=== PATIENT | female | born 1960 | race Caucasian/White ===

== ENCOUNTER 2017-04-03 23:58 | Emergency (ER) | payer OTHER ==
[~2017-04-03] VITALS: Ht 172.7 cm; Wt 127.0 kg
[~2017-04-03 23:58] MED LIST: ECOT81TA2 PO; ISOS30 PO; LEVO.1 PO; METO25 PO; UMEC1AER INH
[2017-04-04 00:07] VITALS: BP 184/79; PULSE 74; RESP 16; TEMP 99
[2017-04-04] MEDS ORDERED: UMEC1AER INH (01:25)
[2017-04-04] MEDS ORDERED: ISOS30TA3 PO (01:25)
[2017-04-04] MEDS ORDERED: METO25TA3 PO (01:25)
[2017-04-04] MEDS ORDERED: LEVO.1 PO (01:25)
[2017-04-04] MEDS ORDERED: ASPI81TA11 PO (01:25)
--- NOTE | 2017-04-04 01:29 | PD ---
HPI Chief Complaint: Laceration/Skin Injury Time Seen by Provider: 01:21 Travel History International Travel<30 days: No Contact w/Intl Traveler<30days: No Traveled to known affect area: No History of Present Illness HPI 56-year-old female presents to the emergency department by private transportation for evaluation of right foot injury. Just prior to arrival to the emergency department around 11 PM she was walking barefoot in her home and cut her foot on a tile cutter. Patient denies other injury. Patient became concerned because she could not recall her last tetanus immunization. Patient is not diabetic. Patient takes no blood thinning agents. Patient denies other injury. Bleeding has been controlled since arriving to the emergency department. PFSH Past Medical History Narrative Medical CAD COPD hypothyroidism; cyst jaw surgery removal; no tobacco use no alcohol use ; nursing notes reviewed Cardiovascular Problems: Yes (PR 2015; CARDIAC CATH) COPD: Yes Diminished Hearing: No Headaches: Yes Reproductive: Yes (HEAVY MENSTRUATION) Respiratory: Yes (60) Thyroid Disease: Yes (HYPO) Menopausal: Yes : 1 Para: 1 Dilation and Curettage (D&C): Yes (IN THE PAST FOR HEAVY MENSTRUATION) Past Surgical History Genitourinary Surgery: Yes (CYST ON R FALLOPIAN TUBE) Oral Surgery: Yes (REALIGNMENT OF LOWER JAW) Other Surgery: Yes (REMOVAL OF CYST ON L INDEX FINGER) Social History Alcohol Use: No Tobacco Use: No Substance Use: No Allergies-Medications (Allergen,Severity, Reaction): Coded Allergies: No Known Allergies (Verified , 04/04/17) Reported Meds & Prescriptions Reported Meds & Active Scripts Active Reported Anoro Ellipta Inh (Umeclidinium/Vilanterol) 62.5-25 Mcg/Act Aero 1 Puff INH DAILY Synthroid (Levothyroxine Sodium) 100 Mcg Tab 100 Mcg PO DAILY Metoprolol Tartrate 25 Mg Tab 25 Mg PO BID Isosorbide Mononitrate ER (Isosorbide Mononitrate) 30 Mg Nishant 30 Mg PO DAILY Aspirin EC (Aspirin) 81 Mg Tabdr 81 Mg PO DAILY Review of Systems Except as stated in HPI: all other systems reviewed are Neg General / Constitutional: No: Fever, Chills HENT: No: Congestion Cardiovascular: No: Chest Pain or Discomfort Respiratory: No: Shortness of Breath Gastrointestinal: No: Abdominal Pain Genitourinary: No: Flank Pain Musculoskeletal: Positive: Pain Skin: Positive Other (sole of right foot), No Rash ( laceration) Neurologic: No: Weakness Hematologic/Lymphatic: No: Lymph Node Enlargement Physical Exam Narrative Gen.: Well-developed well-nourished female in no acute distress no respiratory distress Extremity attention right foot plantar surface 3/4 cm x 3/4 cm flap laceration plantar surface of the right foot lateral aspect no visualized foreign body no active bleeding foot is neurovascular tendon intact distally with dorsalis pedis pulse 2+ to palpation since exam intact Data Data Last Documented VS Vital Signs Date Time Temp Pulse Resp B/P (MAP) Pulse Ox O2 Delivery O2 Flow Rate FiO2 04/04/17 00:07 99.0 74 16 184/79 (114) Orders Orders Tetanus/Diphtheria Tox Adult (Tetanus/Di (04/04/17 01:30) Lidocaine Pf 1% Inj (Xylocaine-Mpf 1% In (04/04/17 01:30) Wound Care (04/04/17 01:30) MDM Medical Decision Making Medical Screen Exam Complete: Yes Emergency Medical Condition: Yes Medical Record Reviewed: Yes Differential Diagnosis Laceration, neurovascular tendon injury, retained foreign body Narrative Course Wound site soaked and cleansed imaging study not indicated tetanus status updated; wound closed with wound adhesive and Steri-Strips Procedures Procedure Narrative LACERATION LOCATION: right foot, plantar LENGTH: 1.5 cm NUMBER OF STITCHES/EBONY: 2 REPAIR: The area of the laceration was prepped with Betadine and sterilely draped. The laceration was infiltrated with 1% lidocaine plain. The wound was copiously irrigated and explored without evidence of foreign body, tendon injury or neurovascular injury. The wound was closed using 5-0 Prolene. This was a single layer repair. A sterile dressing was applied. The patient was advised to keep the dressing clean and dry. Patient tolerated the procedure well. Diagnosis Primary Impression: Laceration of foot Referrals: Primary Care Physician 2 days Patient Instructions: General Instructions Departure Forms: Tests/Procedures, Work Release Special Instructions: no work x 1 day Additional Instructions: wound check 2 days suture removal 7-10 days Keep site clean and dry Follow-up with primary care provider Return to the emergency department for any concerns or change in condition No work times one day Disposition: 01 DISCHARGE HOME Condition: Stable Myriam Covington MD Apr 04, 2017 01:29
[2017-04-04] MEDS ORDERED: LIDOCAINE HCL 1% PF 30 ML VIAL INFIL ONE (01:30)
[2017-04-04] MEDS ORDERED: TETANUS/DIPHTHERIA TOXOID ADULT 0.5 ML VIAL IM ONE (01:30)
== END 2017-04-04 02:21 | disposition home or self-care (01) ==
LOC: PHED 23:58
DX: S91.311A Laceration without foreign body, right foot, initial encounter (principal); E03.9 Hypothyroidism, unspecified; I25.2 Old myocardial infarction; Z23 Encounter for immunization; Z86.79 Personal history of other diseases of the circulatory system; Z87.09 Personal history of other diseases of the respiratory system; Z87.42 Personal history of other diseases of the female genital tract; W27.8XXA Contact with other nonpowered hand tool, initial encounter; Y92.009 Unspecified place in unspecified non-institutional (private) residence as the place of occurrence of the external cause
CPT/HCPCS: 12001; 90471; 90714